=== PATIENT | male | born 1965 | race Asian ===

== ENCOUNTER 2018-07-26 07:57 | Inpatient (IN) | payer OTHER ==
[~2018-07-26] VITALS: Ht 185.4 cm; Wt 98.0 kg
[2018-07-26 07:59] VITALS: Ht 185.4 cm; Wt 98.0 kg
--- NOTE | 2018-07-26 08:08 | NUR ---
REGISTERED RESPIRATORY TECHNICIAN AT BEDSIDE.
--- NOTE | 2018-07-26 08:08 | NUR ---
MSE COMPLETED BY DR MURILLO.
--- NOTE | 2018-07-26 08:23 | NUR ---
PT BIB [facility], WITH C/O OF ACUTE ONSET C/P WITH SOB. PT REPORTS HE HAS BEEN HAVING THESE C/P EPISODES X1 MONTH. PT WAS SEEN BY PMD YESTERDAY WHO WAS GOING TO REFER HIM TO A DATA ENTRY ASSOCIATE. PT REPORTS WHEN HE IS HAVING THE C/P IT LASTS APPROXIMATELY 5-6 WITH SOB. PT DENIES RADIATING PAIN. PT ABLE TO SPEAK IN FULL SENTENCES AND ANSWER QUESTIONS APPROPRIATELY. PT DENIES NAUSEA. PT DENIES PALPIATIONS OR DIZZINESS. UPON ARRIVAL PT APPEARED DIAPHORETIC AND PALE. PT PLACED ON FULL CM. PT ON OXYGEN AT 2L. VITALS STABLE AT THIS TIME. PT IS [place]. MSE COMPLETED BY DR MURILLO.
[2018-07-26 08:24] LABS: BASOPHIL % 1.1 % (0-2); PLATELET COUNT 213 x10^3mcL (130-400); RED CELL DISTRIBUTION WIDTH 12.5 % (11.5-14.5)
--- NOTE | 2018-07-26 08:42 | NUR ---
PT DENIES C/P AFTER FIRST SUBLINGUAL NITRO
[2018-07-26 08:51] LABS: CALCIUM 9.6 mg/dL (8.5-10.1); CARBON DIOXIDE 26.5 mmol/L (21-32); CHLORIDE SERUM 101 mmol/L (98-107); CREATININE SERUM 1.2 mg/dL (0.7-1.3); GFR1 > 60 mL/min; GLUCOSE SERUM 352 mg/dL (74-106); POTASSIUM SERUM 3.9 mmol/L (3.5-5.1); SODIUM SERUM 138 mmol/L (136-145)
[2018-07-26 08:56] LABS: ALBUMIN 4.2 g/dL (3.4-5.0); ALKALINE PHOSPHATASE 94 U/L (46-116); ALT/SGPT 35 U/L (16-63); AST/SGOT 30 U/L (15-37); BILIRUBIN TOTAL 0.68 mg/dL (0.20-1.00); HDL CHOLESTEROL 46 mg/dL (40-60); LIPASE 307 IU/L (73-393)
--- NOTE | 2018-07-26 08:57 | NUR ---
PT MEDICATED PER DOCTORS ORDERS
[2018-07-26 09:06] LABS: T3 TOTAL 1.03 ng/mL
[2018-07-26 09:12] LABS: CHOLESTEROL 208 mg/dL (<200); CHOLESTEROL/HDL RATIO 4.5; TRIGLYCERIDES 271 mg/dL (<150)
[2018-07-26 09:13] LABS: FREE T4 1.07 ng/dL (0.76-1.46); FREE THYROXINE INDEX 3.3 ug/dL (1.4-4.5); T4(THYROXINE) 9.3 ug/dL (4.7-13.3)
[2018-07-26] MEDS ORDERED: LOSARTAN POTAS100 M1 PO (09:16)
[2018-07-26] MEDS ORDERED: METOPROLOL SUCC50 M2 PO (09:17)
[2018-07-26] MEDS ORDERED: METFORMIN HYDR500 M1 PO (09:17)
[2018-07-26] MEDS ORDERED: LIPITOR10 MG GT (09:18)
--- NOTE | 2018-07-26 09:55 | NUR ---
RECEIVED PT FROM ER, REPORT GIVEN BY WILLIAM RIVERA. PT ARRIVED ON A GURNEY, ALONE, ASSISTED BY RN. PT IS AAOX4, RESP EVEN AND UNLABORED. LUNG SOUNDS CTA. PT ON N/C AT 2LPM, SAT 98%. TELEMONITOR [address] READING NSR WITH DEPRESSED TWAVE. PT HAS SUBSTERNAL C/P 5/10, NITRO WILL BE GIVEN. ABDOMEN SOFT, NONTENDER, NONDISTENDED, BOWEL SOUNDS ACTIVE. SKIN CDI, NO EDEMA NOTED. PERIPHERAL PULSES PALPABLE. IV CATH TO RAC PATENT WITH FLUIDS RUNNING. NO S/S OF INFECTION NOTED. PT ORIENTED TO ROOM AND CALL LIGHT. BED IN LOW POSITION. CALL LIGHT WITHIN REACH.
[2018-07-26 10:34] VITALS: BP 168/102
[2018-07-26 10:34] LABS: microscopic required? NO
[2018-07-26 11:12] LABS: UA SPECIFIC GRAVITY 1.015 (1.005-1.035); urine erythrocyte NEGATIVE (NEGATIVE)
[2018-07-26 12:15] VITALS: BP 154/98
--- NOTE | 2018-07-26 12:25 | NUR ---
HEPARIN IV BOLUS 6000 UNITS GIVEN IVP. HEPARIN 1200 UNITS/HR IV STARTED. ALL ORDERS COSIGNED BY WILLIAM FIGUEROA. PT DENIES PAIN OR DISCOMFORT AT THIS TIME. NO DISTRESS NOTED. CALL LIGHT WITHIN REACH.
--- NOTE | 2018-07-26 12:30 | NUR ---
REPORT GIVEN TO JERZY AT [facility]. ALL QUESTIONS ANSWERED. AWAITING TRANSPORTATION TIME. ATTENDING NURSE GIGI WITH PATIENT, HEPARIN DRIP STARTED WITH 6000 HEPARIN BOLUS GIVEN. WILL CONTINUE TO MONITOR PATIENT AND MAINTAIN SAFETY.
--- NOTE | 2018-07-26 12:35 | NUR ---
DR BARTHOLOMEW MADE AWARE THAT PER DR VILLEDA PATIENT TO BE TRANSFERRED FOR CARDIAC CATHETERIZATION. PER COAT CHECKER YULISSA COELLO PATIENT IS ACCEPTED TO [facility] AND TRANSPORT TO BE ARRANGED NOW. RECEIVED CONFERENCE CALL FROM YULISSA COELLO AND DR VILLEDA WHO GAVE TELEPHONE ORDER TO TRANSFER PATIENT WITHOUT HEPARIN DRIP AND RESTART HEPARIN DRIP WHEN PATIENT ARRIVES AT [facility]. CALL BACK JERZY AT [facility] AND INFORMED HER THAT HEPARING WILL BE STOPPED DURING TRANSPORTATION BUT NEEDS TO BE RESTARTED IMMEDIATELY WHEN PATIENT ARRIVES. ATTENDING NURSE GIGI MARTINS.
[2018-07-26 13:02] VITALS: BP 154/98
[2018-07-26 13:07] LABS: MAGNESIUM 2.1 mg/dL (1.8-2.4)
--- NOTE | 2018-07-26 13:31 | NUR ---
PLAVIX 300MG PO GIVEN. PT DENIES CHEST PAIN, PRESSURE, AND PALPITATIONS AT THIS TIME. RESP EVEN AND UNLABORED. NO SOB OR COUGH NOTED. NO DISTRESS NOTED. CALL LIGHT WITHIN REACH.
--- NOTE | 2018-07-26 13:55 | NUR ---
PT HAS TRANSFERRED BY AMBULANCE ON A GURNEY ESCORTED BY 2 EMT TO [facility]. TRANSFER FORM SIGNED AND IN CHART. TRANSFER INSTRUCTIONS REVIEWED WITH PT. PT LEFT IN NO DISTRESS, DENIED CHEST PAIN, PRESSURE AND PALPITATIONS. VS: 97.8M, 65, 20, 154/98, 99% ON R/A. IV CATH TO RAC N/S LOCKED. SITE WNL. PT'S ACCOMPANIED PT UPON TRANSFER.
== END 2018-07-26 13:55 | disposition short-term general hospital (02) | DRG 282 ==
LOC: ED 07:57 → DU 09:22
PROVIDERS: Specialist; ADMIT Internal Medicine
DX: I21.4 Non-ST elevation (NSTEMI) myocardial infarction (principal); E11.9 Type 2 diabetes mellitus without complications; I25.110 Atherosclerotic heart disease of native coronary artery with unstable angina pectoris; I10 Essential (primary) hypertension; E78.00 Pure hypercholesterolemia, unspecified; R09.1 Pleurisy; Z88.6 Allergy status to analgesic agent; Z87.891 Personal history of nicotine dependence; Z79.899 Other long term (current) drug therapy; Z79.4 Long term (current) use of insulin
CPT/HCPCS: 82962; 83880; 84439; 85378; J1644; Q0092

== ENCOUNTER → 2018-09-25 | Outpatient (CLI) | payer OTHER ==
[~2018-09-25] MED LIST: LIPITOR10 MG GT; LOSARTAN POTAS100 M1 PO; METFORMIN HYDR500 M1 PO; METOPROLOL SUCC50 M2 PO
== END | disposition home or self-care (01) ==
LOC: CA 07:51
DX: I25.10 Atherosclerotic heart disease of native coronary artery without angina pectoris (principal)

== ENCOUNTER → 2018-09-26 | Outpatient (CLI) | payer OTHER | END | disposition home or self-care (01) | LOC: NM 11:12 | DX: I25.10 Atherosclerotic heart disease of native coronary artery without angina pectoris (principal) | CPT/HCPCS: A9500; J2785 ==

== ENCOUNTER → 2018-12-21 | Outpatient (CLI) | payer OTHER ==
[2018-12-21 07:35] LABS: BASOPHIL % 0.6 % (0-2); PLATELET COUNT 223 x10^3mcL (130-400); RED CELL DISTRIBUTION WIDTH 12.8 % (11.5-14.5)
[2018-12-21 07:36] LABS: ALBUMIN 4.1 g/dL (3.4-5.0); ALKALINE PHOSPHATASE 75 U/L (46-116); ALT/SGPT 46 U/L (16-63); AST/SGOT 23 U/L (15-37); BILIRUBIN DIRECT 0.12 mg/dL (0.0-0.2); BILIRUBIN TOTAL 0.56 mg/dL (0.20-1.00); CALCIUM 9.4 mg/dL (8.5-10.1); CHLORIDE SERUM 105 mmol/L (98-107); CHOLESTEROL 157 mg/dL (<200); CHOLESTEROL/HDL RATIO 3.4; CREATININE SERUM 0.9 mg/dL (0.7-1.3); GFR1 > 60 mL/min; GLUCOSE SERUM 171 mg/dL (74-106); HDL CHOLESTEROL 46 mg/dL (40-60); SODIUM SERUM 142 mmol/L (136-145); TOTAL PROTEIN, SERUM 7.5 g/dL (6.4-8.2); TRIGLYCERIDES 135 mg/dL (<150)
== END | disposition home or self-care (01) ==
LOC: LB 06:53
DX: Z00.00 Encounter for general adult medical examination without abnormal findings (principal)

== ENCOUNTER → 2019-05-10 | Outpatient (CLI) | payer OTHER ==
[2019-05-10 06:32] LABS: PLATELET COUNT 223 x10^3mcL (130-400); RED CELL DISTRIBUTION WIDTH 12.8 % (11.5-14.5)
[2019-05-10 06:51] LABS: ALBUMIN 4.1 g/dL (3.4-5.0); ALKALINE PHOSPHATASE 75 U/L (46-116); ALT/SGPT 33 U/L (16-63); AST/SGOT 24 U/L (15-37); BILIRUBIN DIRECT 0.16 mg/dL (0.0-0.2); BILIRUBIN TOTAL 0.8 mg/dL (0.20-1.00); CALCIUM 8.9 mg/dL (8.5-10.1); CARBON DIOXIDE 28.3 mmol/L (21-32); CHLORIDE SERUM 104 mmol/L (98-107); CHOLESTEROL 147 mg/dL (<200); CHOLESTEROL/HDL RATIO 3.1; CREATININE SERUM 1.1 mg/dL (0.7-1.3); GFR1 > 60 mL/min; GLUCOSE SERUM 149 mg/dL (74-106); HDL CHOLESTEROL 48 mg/dL (40-60); SODIUM SERUM 141 mmol/L (136-145); TOTAL PROTEIN, SERUM 7.7 g/dL (6.4-8.2); TRIGLYCERIDES 134 mg/dL (<150)
== END | disposition home or self-care (01) ==
LOC: LB 06:08
PROVIDERS: Internal Medicine
DX: Z00.00 Encounter for general adult medical examination without abnormal findings (principal)
CPT/HCPCS: 84153

== ENCOUNTER → 2020-01-25 | Outpatient (CLI) | payer OTHER ==
[2020-01-25 08:01] LABS: BASOPHIL % 0.7 % (0-2); PLATELET COUNT 233 x10^3mcL (130-400); RED CELL DISTRIBUTION WIDTH 12.6 % (11.5-14.5)
[2020-01-25 08:28] LABS: ALBUMIN 4.3 g/dL (3.4-5.0); ALKALINE PHOSPHATASE 67 U/L (46-116); ALT/SGPT 35 U/L (16-63); AST/SGOT 17 U/L (15-37); BILIRUBIN DIRECT 0.12 mg/dL (0.0-0.2); BILIRUBIN TOTAL 0.5 mg/dL (0.20-1.00); CALCIUM 9.3 mg/dL (8.5-10.1); CARBON DIOXIDE 24.9 mmol/L (21-32); CHLORIDE SERUM 102 mmol/L (98-107); CHOLESTEROL 147 mg/dL (<200); CHOLESTEROL/HDL RATIO 3.1; CREATININE SERUM 1.1 mg/dL (0.7-1.3); GFR1 > 60 mL/min; GLUCOSE SERUM 137 mg/dL (74-106); HDL CHOLESTEROL 47 mg/dL (40-60); SODIUM SERUM 139 mmol/L (136-145); TOTAL PROTEIN, SERUM 7.8 g/dL (6.4-8.2); TRIGLYCERIDES 165 mg/dL (<150)
== END | disposition home or self-care (01) ==
LOC: LB 06:31
PROVIDERS: ATTEND Internal Medicine
DX: Z00.00 Encounter for general adult medical examination without abnormal findings (principal)

== ENCOUNTER → 2020-02-12 | Outpatient (CLI) | payer OTHER | END | disposition home or self-care (01) | LOC: US 09:22 | PROVIDERS: ATTEND Internal Medicine | PROC: BW4GZZZ Ultrasonography of Pelvic Region (ICD-10-PCS; principal; 2020-02-12) | DX: R10.9 Unspecified abdominal pain (principal) ==

== ENCOUNTER → 2020-05-06 | Outpatient (CLI) | payer OTHER | END | disposition home or self-care (01) | LOC: NM 07:28 | PROVIDERS: ATTEND Internal Medicine Cardiovascular Disease | DX: R07.9 Chest pain, unspecified (principal); I25.10 Atherosclerotic heart disease of native coronary artery without angina pectoris; I25.2 Old myocardial infarction | CPT/HCPCS: A9500; J2785 ==

== ENCOUNTER → 2020-08-16 | Outpatient (CLI) | payer OTHER ==
[2020-08-16 07:36] LABS: PLATELET COUNT 233 x10^3mcL (152-348); RED CELL DISTRIBUTION WIDTH 13.1 % (12.1-16.2)
[2020-08-16 08:01] LABS: ALBUMIN 4.2 g/dL (3.4-5.0); ALKALINE PHOSPHATASE 77 U/L (46-116); ALT/SGPT 36 U/L (16-63); AMYLASE 66 U/L (25-115); AST/SGOT 20 U/L (15-37); BILIRUBIN DIRECT 0.11 mg/dL (0.0-0.2); BILIRUBIN TOTAL 0.55 mg/dL (0.20-1.00); CALCIUM 9.3 mg/dL (8.5-10.1); CARBON DIOXIDE 24.2 mmol/L (21-32); CHLORIDE SERUM 102 mmol/L (98-107); CHOLESTEROL 168 mg/dL (<200); CHOLESTEROL/HDL RATIO 3.5; FREE T4 0.98 ng/dL (0.76-1.46); GFR1 > 60 mL/min; GLUCOSE SERUM 172 mg/dL (74-106); HDL CHOLESTEROL 48 mg/dL (40-60); LIPASE 230 IU/L (73-393); POTASSIUM SERUM 3.9 mmol/L (3.5-5.1); SODIUM SERUM 138 mmol/L (136-145); TOTAL PROTEIN, SERUM 7.6 g/dL (6.4-8.2); TRIGLYCERIDES 195 mg/dL (<150)
[2020-08-17 08:06] LABS: microalbumin:creatinine ratio 12 (0-29)
== END | disposition home or self-care (01) ==
LOC: LB 07:02
PROVIDERS: ATTEND Internal Medicine
DX: Z00.00 Encounter for general adult medical examination without abnormal findings (principal)
CPT/HCPCS: 84439